=== PATIENT | male | born 1985 ===

== ENCOUNTER 2023-08-15 17:26 | Emergency (ER) | payer OTHER, SELFPAY ==
[2023-08-15] VITALS (52 sets, daily range): BP systolic 153–167; BP diastolic 91–111; PULSE 60–79; RESP 19–41; TEMP 37.8; O2SAT 96–100
--- NOTE | 2023-08-15 17:15 | RT.EKG_ITS ---
APPROVED REPORT Exam: Resting ECG Reason for Exam: Detoxing Patient Location: E HR:67 bpm ECG Measurements Heart Rate 67 AXIS VT 171 P 74 QRSd 101 QRS 79 QT 392 T 83 QTc 414 Conclusion Sinus rhythm 67 normal axis benign early repol
[2023-08-15 17:33] LABS: BE (Venous) 8 mmol/L (-2-3); HCO3 (Venous) 31 mmol/L (23-28); O2 Sat (Venous) 47 %; TCO2 (Venous) 28 mmol/L (24-29); pCO2 (Venous) 42 mmHg (41-51); pH (Venous) 7.48 (7.31-7.41); pO2 (Venous) 25 mmHg
[2023-08-15] MEDS: Normal Saline 1,000 ML 1000 ML IV ×2 (17:38→19:24)
[2023-08-15 17:39] LABS: Abs Immature Grans 0.01 10^3/uL (0.0-0.06); Absolute Basophil Count 0.02 10^3/uL (0.0-0.2); Absolute Lymphocyte Count 1.04 10^3/uL (1.2-3.4); Absolute Monocyte Count 0.23 10^3/uL (0.1-0.8); Absolute Neutrophil Count 5.72 10^3/uL (1.2-6.7); Basophils % 0.3 %; HCT 44.1 % (40.0-50.0); HGB 14.5 g/dL (13.5-17.5); Immature Grans % 0.1 %; Lymphocytes % 14.8 %; MCH 25.7 pg (27.0-33.0); MCHC 32.9 % (32.0-36.0); MCV 78 fL (80-95); MPV 9.2 fL (8.0-11.0); Monocytes % 3.3 %; Neutrophils % 81.5 %; Platelet Count 266 10^3/uL (130-400); RBC 5.65 10^6/uL (4.36-5.78); RDW 13.6 % (11.8-14.1); RDW-SD 38.5 fL; WBC 7.02 10^3/uL (4.4-10.8)
--- NOTE | 2023-08-15 17:48 | DI.RAD_ITS ---
Exam(s) XR PORTABLE CHEST AP EXAM: XR PORTABLE CHEST AP CLINICAL HISTORY: ams. TECHNIQUE: 2D digital imaging was performed. COMPARISON: No exams were available for comparison FINDINGS: Single AP portable view. Heart size is upper normal. The mediastinum is not widened. Lungs are clear. No infiltrates nor obvious pleural effusions. IMPRESSION: No acute pulmonary findings on this single AP portable view of the chest. DATA REPOSITORY: RADIATION DOSE DELIVERED:
[2023-08-15 17:54] LABS: ALT 49 U/L (16-63); AST 31 U/L (15-37); Albumin 3.9 g/dL (3.4-5.0); Alkaline Phosphatase 117 U/L (46-116); Anion Gap 9.2 mmol/L (3-11); BUN 13 mg/dL (7-18); Bilirubin, Total 0.65 mg/dL (0.2-1.0); CO2 30.8 mmol/L (21.0-32.0); CREATININE 0.8 mg/dL (0.70-1.30); Calcium 9.4 mg/dL (8.5-10.1); Chloride 99 mmol/L (98-107); Creatine Kinase 118 U/L (39-308); Estimated GFR 115.45 (mL/min/1.73m2); Glucose 100 mg/dL (74-106); Magnesium 1.9 mg/dL (1.8-2.4); Potassium 3.8 mmol/L (3.5-5.1); Sodium 139 mmol/L (136-145); Total Protein 8.7 g/dL (6.4-8.2)
--- NOTE | 2023-08-15 18:05 | DI.VRAD_ITS ---
PROCEDURE INFORMATION: Exam: XR Chest Exam date and time: 08/15/2023 5:41 PM Age: 38 years old Clinical indication: Other: AMS TECHNIQUE: Imaging protocol: Radiologic exam of the chest. Views: 1 view. COMPARISON: No relevant prior studies available. FINDINGS: Tubes, catheters and devices: EKG wires overlie the chest. Lungs: Low lung volumes. Crowding of the central pulmonary vasculature. No focal consolidation. Pleural spaces: Unremarkable. No pleural effusion. No pneumothorax. Heart/Mediastinum: Unremarkable. No cardiomegaly. Bones/joints: Scoliosis of the thoracic spine. IMPRESSION: Low lung volumes with crowding of the central pulmonary vasculature. No consolidation. Dictated and Authenticated by: Sydnie Boyd MD. Ordering:[facility] Carlos Espinoza MD
[2023-08-15] MEDS: Ondansetron 4 MG/2 ML VIAL 8 MG IVP (18:06)
[2023-08-15 19:18] LABS: Bilirubin Small (Negative); Blood Small (Negative); Clarity Clear (Clear); Glucose Negative (Negative); Ketones 80 mg/dL (Negative); Leukocyte Esterase Negative (Negative); Nitrite Negative (Negative); Specific Gravity 1.025 (1.005-1.025)
--- NOTE | 2023-08-15 19:24 | ED.GENADUL_ITS ---
Discharge Plan Disposition [facility] Disposition: [facility] Discharge Details Clinical Impression: Acute alteration in mental status, Withdrawal syndrome, Polysubstance abuse, Vomiting Primary Care Provider: Unknown,Unknown ED Provider: Niranjan Gonzalez Home Meds and New Rx's Prescriptions: No Action buprenorphine HCl 2 mg tablet, sublingual 4 mg sublingual DAILY ondansetron 4 mg tablet,disintegrating 4 mg PO TID hydroxyzine HCl 50 mg tablet 50 mg PO TID clonidine HCl 0.1 mg tablet 0.1 mg PO TID Discharge Instructions Additional Instructions: * please continue appropriate withdrawal treatment * tox screen positive for cocaine, patient also endorses heroin and xylazine * mild dehydration on evaluation, resuscitated with 2L IV Fluids * tolerating liquids in the ED HPI General Date/Time Provider Initiated Documentation: 08/15/23 17:27 . Limitations to Documentation: altered mental status . Information obtained by: patient, police and EMS . HPI Narrative: 38-year-old gentleman with past medical history of polysubstance use presents v ia EMS in police custody from the correction. Per report the patient started having some vomiting and there was concern for possible opiate withdrawal symptoms. He got buprenorphine, clonidine and hydroxyzine and the patient became less responsive. EMS reported that his vital signs were stable but that he was only responsive to sternal rub. There is no history of trauma. The police report that he was taken into custody around 9 PM last night. The patient reports that he smokes and injects heroin and xylazine. He denies any alcohol use he reports that his last use was yesterday Related Data Home Medications Medication Instructions Recorded Confirmed buprenorphine HCl 2 mg sublingual 4 mg sublingual DAILY 08/15/23 08/15/23 tablet clonidine HCl 0.1 mg tablet 0.1 mg PO TID 08/15/23 08/15/23 hydroxyzine HCl 50 mg tablet 50 mg PO TID 08/15/23 08/15/23 ondansetron 4 mg disintegrating 4 mg PO TID 08/15/23 08/15/23 tablet Allergies Allergy/AdvReac Type Severity Reaction Status Date / Time nut - unspecified Allergy Severe Anaphylaxis Verified 08/15/23 17:35 pollen extracts AdvReac Mild Unknown Verified 08/15/23 17:35 methylphenidate AdvReac Unknown Unknown Verified 08/15/23 17:35 [From Ritalin] General Stated Complaint: AMS/LOC YULI: 2 Exam Narrative Exam Narrative: Review of Systems: All systems reviewed & are unremarkable except as noted in HPI and below Well-developed Laying in bed with eyes closed, eyes open to voice NCAT PERRL, normal conjunctiva Pupils midrange RRR no murmur Unlabored respiratory effort clear bilaterally Nondistended abdomen soft nontender Extremities w/o deformity, no cyanosis, no edema No rashes or lesions. Patient laying still with minimal responsiveness however when approached with Narcan the patient opened his eyes and said no and began to answer questions Course Vital Signs Vital signs: Vital Signs Temperature 37.8 C H 08/15/23 17:18 Pulse 63 08/15/23 17:18 Respiratory Rate 26 H 08/15/23 17:18 Blood Pressure 161/111 H 08/15/23 17:18 Pulse Oximetry 100 08/15/23 17:18 Temperature 37.8 C H 08/15/23 17:18 Temperature Source Tympanic 08/15/23 17:18 Pulse 63 08/15/23 17:18 Respiratory Rate 30 H 08/15/23 17:41 Respiratory Effort Normal 08/15/23 17:41 Respiratory Depth Normal 08/15/23 17:41 Respiratory Pattern Tachypnea 08/15/23 17:41 Blood Pressure 161/111 H 08/15/23 17:18 Pulse Oximetry 100 08/15/23 17:18 Oxygen Delivery Method Room Air 08/15/23 17:18 Oxygen Flow Rate 0 08/15/23 17:18 Lab/Test Results Lab/Test Results: Laboratory Tests Range/Units 08/15/23 08/15/23 17:28 19:05 WBC (4.4-10.8) 10^3/uL 7.02 RBC (4.36-5.78) 10^6/uL 5.65 Hgb (13.5-17.5) g/dL 14.5 Hct (40.0-50.0) % 44.1 MCV (80-95) fL 78 L MCH (27.0-33.0) pg 25.7 L MCHC (32.0-36.0) % 32.9 RDW (11.8-14.1) % 13.6 Plt Count (130-400) 10^3/uL 266 MPV (8.0-11.0) fL 9.2 Immature Gran % % 0.1 Neutrophils % % 81.5 Lymphocytes % % 14.8 Monocytes % % 3.3 Eosinophils % % 0.0 Basophils % % 0.3 Nucleated RBC % (0.0-0.3) % 0.0 Absolute Neutrophils (1.2-6.7) 10^3/uL 5.72 Absolute Lymphocytes (1.2-3.4) 10^3/uL 1.04 L Absolute Monocytes (0.1-0.8) 10^3/uL 0.23 Absolute Eosinophils (0.0-0.7) 10^3/uL 0.00 Absolute Basophils (0.0-0.2) 10^3/uL 0.02 VBG pH (7.31-7.41) 7.48 H VBG pCO2 (41-51) mmHg 42 VBG pO2 mmHg 25 VBG HCO3 (23-28) mmol/L 31 H VBG Total CO2 (24-29) mmol/L 28 VBG O2 Saturation % 47 VBG Base Excess (-2-3) mmol/L 8 H Sodium (136-145) mmol/L 139 Potassium (3.5-5.1) mmol/L 3.8 Chloride (98-107) mmol/L 99 Carbon Dioxide (21.0-32.0) mmol/L 30.8 Anion Gap (3-11) mmol/L 9.2 BUN (7-18) mg/dL 13 Creatinine (0.70-1.30) mg/dL 0.8 Est GFR (CKD-EPI 2020) (mL/min/1.73m2) 115.45 Glucose (74-106) mg/dL 100 Calcium (8.5-10.1) mg/dL 9.4 Magnesium (1.8-2.4) mg/dL 1.9 Total Bilirubin (0.2-1.0) mg/dL 0.65 AST (15-37) U/L 31 ALT (16-63) U/L 49 Alkaline Phosphatase (46-116) U/L 117 H Creatine Kinase (39-308) U/L 118 Total Protein (6.4-8.2) g/dL 8.7 H Albumin (3.4-5.0) g/dL 3.9 Urine Color (Yellow) Yellow Urine Clarity (Clear) Clear Urine pH (5-8) 7.0 Ur Specific Silt (1.005-1.025) 1.025 Urine Protein (Neg-Trace) mg/dL Negative Urine Ketones (Negative) mg/dL 80 H Urine Blood (Negative) Small H Urine Nitrite (Negative) Negative Urine Bilirubin (Negative) Small H Urine Urobilinogen (Up to 0.2) mg/dL 2.0 H Ur Leukocyte Esterase (Negative) Negative Urine Glucose (Negative) mg/dL Negative Medical Decision Making Emergent evaluation of altered mental status. Initial differential includes polysubstance abuse, withdrawal symptoms. The patient skin is very dirty likely unhoused and unkempt prior to getting into police custody. He does report polysubstance use, last use yesterday. The patient does seem to have some volitional aspect to his mental status. His glucose is 90. He has normal vital signs. He was placed on the dietitian therapeutic and end-tidal CO2 monitoring. At this time he is protecting his airway and there is no indication for intubation. There are no signs of trauma. patient observed for a time in the ED. MEntal status continued to improve appropriately. I suspect the combo of clonidine + bup + hydroxyzine caused the sedation. he was resuscitated with IV fluids. He was sitting up and drinking fluids. At this time he is stable for return to the [facility]. Medical Records Medical records reviewed: Yes I reviewed the patient's medical records. Lab Data Lab results reviewed: Yes I reviewed the patient's lab results. Quality:[facility] Health Related Social Needs: No Data to Display PFSH All Active Problems (Updated 08/15/23 @ 19:46 by Niranjan Gonzalez MD) Vomiting (Acute) Polysubstance abuse (Acute) Withdrawal syndrome (Acute) Acute alteration in mental status (Acute) Social History Smoking/Tobacco Use Status: Current every day Tobacco Type: cigarettes Smoking risk assessment performed?: Yes Substance use type: marijuana, crack/cocaine, heroin, amphetamines, opiates, IV drugs and methamphetamine Details: pt endorsed every drug but ETOH Housing: other
[2023-08-15 19:25] LABS: Bacteria Negative HPF (Negative); C & S Indicated? No; Crystals Moderate Amorphous HPF (Negative); Epithelial Cells Negative HPF (Negative); Mucus Trace (Negative); WBC Negative HPF (0-5)
[2023-08-15 19:35] LABS: *AMPHETAMINES SCREEN URINE Negative (Negative); *BARBITURATES SCREEN URINE Negative (Negative); *BENZODIAZEPINES SCREEN URINE Negative (Negative); Cannabinoids THC Negative (Negative); Cocaine Screen,Urine Positive (Negative); METHADONE URINE SCREEN Negative (Negative); OPIATES URINE SCREEN Negative (Negative); Tricyclic Antidepressants Negative (Negative)
== END 2023-08-15 20:21 ==
PROVIDERS: Emergency Provider Emergency Medicine
DX: F19.939 Other psychoactive substance use, unspecified with withdrawal, unspecified (principal); R11.10 Vomiting, unspecified; R41.82 Altered mental status, unspecified
CPT/HCPCS: 80053; 80307; 82550; 82805; 93005; 96361; 96374; 99285; 71045; 81003; 81015; 83735; 85025; 93010; 99284; J2405

== ENCOUNTER 2024-06-03 01:48 | Emergency (ER) | payer MEDICAID, SELFPAY ==
[2024-06-03 02:07] VITALS: PULSE 56; RESP 14; O2SAT 100
[2024-06-03 02:10] VITALS: RESP 16
--- NOTE | 2024-06-03 02:14 | W.ED.GENAD ---
Discharge Plan Disposition [facility] Dis[facility] Condition: Stable Discharge Details Chief Complaint: AMS/LOC Clinical Impression: Unspecified behavioral syndromes associated with physiological disturbances and physical factors Primary Care Provider: Unknown,Unknown ED Provider: Baldomero Hill Home Meds and New Rx's Prescriptions: No Action buprenorphine HCl 2 mg tablet, sublingual 4 mg sublingual DAILY ondansetron 4 mg tablet,disintegrating 4 mg PO TID hydroxyzine HCl 50 mg tablet 50 mg PO TID clonidine HCl 0.1 mg tablet 0.1 mg PO TID Discharge Instructions Additional Instructions: Continue medications as previously directed. You can always return to the ER for any new concerns or sudden changes in your health which you feel require emergency medical attention Discharge Data Discharge Physician: Baldomero Hill HPI General Date/Time Provider Initiated Documentation: 06/03/24 02:14. HPI Narrative: The patient is a 39-year-old male, known to this facility for visits related to prior opioid misuse disorder, and malingering associated with prior arrest attempts, who presents to the emergency department this evening after he was found to be unresponsive by the long-term personnel when the police transporting him arrived there. The patient was seen and medically cleared at another hospital prior to arriving at the long-term in the [facility], at which point in time he was suddenly found to be unresponsive. The patient was found with drug paraphernalia on him, although the police do not think that he took any drugs and route to the facility. Related Data Home Medications ?Medication ?Instructions ?Recorded ?Confirmed buprenorphine HCl 2 mg sublingual 4 mg sublingual DAILY 08/15/23 06/03/24 tablet clonidine HCl 0.1 mg tablet 0.1 mg PO TID 08/15/23 06/03/24 hydroxyzine HCl 50 mg tablet 50 mg PO TID 08/15/23 06/03/24 ondansetron 4 mg disintegrating 4 mg PO TID 08/15/23 06/03/24 tablet Allergies Allergy/AdvReac Type Severity Reaction Status Date / Time nut - unspecified Allergy Severe Anaphylaxis Verified 06/03/24 02:11 pollen extracts AdvReac Mild Unknown Verified 06/03/24 02:11 methylphenidate (From AdvReac Unknown Unknown Verified 06/03/24 02:11 Ritalin) General Stated Complaint: AMS/LOC YULI: 4 Exam Const Other: The patient appears to have normal vital signs on the monitor on arrival, including a normal oxygen saturation, normal respiratory rate, normal heart rate, and normal blood pressure. Eyes Other: The pupils measure 3 to 4 mm and are reactive to light and accommodation. The patient attempts to keep his eyes closed during the initial evaluation. Resp Effort & Inspection: normal respiratory effort Auscultation: clear to auscultation bilaterally Cardio Rate: regular rate Rhythm: regular rhythm Heart Sounds: S1 normal and S2 normal Neuro General: moves all extremities Other: Although the patient seems to be feigning somnolence, he is arousable to multiple forms of tactile stimulation. He will open his eyes and move around to deep painful stimulation. He spontaneously moves all 4 extremities. Course Vital Signs Vital signs: Vital Signs Pulse 56 L 06/03/24 02:07 Respiratory Rate 14 06/03/24 02:07 Pulse Oximetry 100 06/03/24 02:07 Pulse 56 L 06/03/24 02:07 Respiratory Rate 16 06/03/24 02:10 Respiratory Effort Normal 06/03/24 02:10 Respiratory Depth Normal 06/03/24 02:10 Respiratory Pattern Normal 06/03/24 02:10 Pulse Oximetry 100 06/03/24 02:07 Oxygen Delivery Method Room Air 06/03/24 02:07 Oxygen Flow Rate 0 06/03/24 02:07 Medical Decision Making The patient was seen and examined. He may be malingering here in the emergency room and certainly has some secondary gain to not being incarcerated and being brought to emergency room. He was given 2 mg of intranasal Narcan here in the emergency room which did not significantly change his physical appearance of unresponsiveness but did improve his blood pressure somewhat. The patient continues to be arousable easily to minimal stimulation. He does not appear to be in any distress and has normal vital signs. I offered to observe the patient for period of time with the police, but it seems as though they would prefer to take him to the long-term for processing. Quality:[facility] Health Related Social Needs: No Data to Display PFSH All Active Problems (Updated 06/03/24 @ 02:22 by Baldomero Hill MD) Unspecified behavioral syndromes associated with physiological disturbances and physical factors (Acute) Social History Smoking/Tobacco Use Status: Current every day Tobacco Type: cigarettes Smoking risk assessment performed?: Yes Alcohol Intake: current Alcohol Intake frequency: 3 or more drinks per day Substance use type: marijuana, crack/cocaine, heroin, amphetamines, opiates, IV drugs and methamphetamine Details: pt endorsed every drug but ETOH Housing: other
== END 2024-06-03 02:30 ==
PROVIDERS: Emergency Provider Emergency Medicine Emergency Medical Services
DX: F59 Unspecified behavioral syndromes associated with physiological disturbances and physical factors (principal); F17.210 Nicotine dependence, cigarettes, uncomplicated
CPT/HCPCS: 99283; J2310